=== PATIENT | female | born 1955 | race Caucasian/White ===

== ENCOUNTER 2023-08-03 10:03 | Outpatient (OUT) | payer MEDICARE, OTHER, SELFPAY ==
[2023-08-03 10:36] LABS: Basophils Absolute Auto 0.1 10^3/uL (0.0-0.1); Basophils Percent Auto 0.7 % (0.2-2.0); Eosinophils Absolute Auto 0.1 10^3/uL (0.0-0.7); Eosinophils Percent Auto 1.6 % (0.9-7.0); Hematocrit 41.2 % (36.0-48.0); Hemoglobin 13.2 g/dL (12.0-16.0); Immature Granulocytes Abs Auto 0.02 10^3/uL (0.00-0.03); Immature Granulocytes Pct Auto 0.3 % (0.0-0.5); Lymphocytes Absolute Auto 1.6 10^3/uL (1.2-3.8); Mean Corpuscular Hemoglobin 29.9 pg (26.7-34.0); Mean Corpuscular Volume 93.4 fL (81.0-99.0); Mean Platelet Volume 8.9 fL (9.5-13.5); Monocytes Absolute Auto 0.7 10^3/uL (0.3-0.8); Neutrophils Absolute Auto 4.2 10^3/uL (1.4-6.5); Neutrophils Percent Auto 62.4 % (43.0-75.0); Platelet Count 244 10^3/uL (150-450); Red Blood Count 4.41 10^6/uL (4.20-5.40); Red Cell Distribution Width 13.4 % (11.0-15.0); White Blood Count 6.7 10^3/uL (4.0-11.0)
[2023-08-03 11:10] LABS: Alanine Aminotransferase 17 U/L (14-59); Albumin Globulin Ratio 0.9; Albumin Level 3.4 g/dL (3.4-5.0); Alkaline Phosphatase 66 U/L (46-116); Anion Gap 9.4; Aspartate Amino Transferase 14 U/L (15-37); Bilirubin Total 0.4 mg/dL (0.2-1.0); Calcium 9.7 mg/dL (8.5-10.1); Carbon Dioxide 29.1 mmol/L (21.0-32.0); Chloride 106 mmol/L (98-107); Estimated GFR (African America 57 (>=60); Estimated GFR (Non-African Ame 47 (>=60); Globulin 3.6 g/dL; Glucose 88 mg/dL (74-106); Potassium 3.5 mmol/L (3.5-5.1); Sodium 141 mmol/L (136-145)
== END 2023-08-03 10:04 | disposition home or self-care (01) ==
LOC: LAB 10:09
PROVIDERS: PCP Internal Medicine; Visit Provider Internal Medicine
DX: K21.9 Gastro-esophageal reflux disease without esophagitis (principal); I10 Essential (primary) hypertension
CPT/HCPCS: 36415; 80053; 85025

== ENCOUNTER 2024-08-08 10:29 | Outpatient (OUT) | payer MEDICARE, OTHER, SELFPAY ==
--- OUTSIDE RECORDS SUMMARY | 2024-08-08 10:34 | XMS_ITS | Clinical Summary ---
Author Organization [facility] Address [address] [place] [address] Care Team Providers Care Rad Technologist Name Role Phone Unavailable Primary Care Provider Unavailabl e Social History Tobacco Use Types Packs/Day Years Used Date Smoking Tobacco: Never Assessed Comments Unknown Sex and Gender Information Value Date Recorded Sex Assigned at Not on file Legal Sex Female 6:53 PM EDT Gender Identity Not on file Sexual Orientation Not on file Last Filed Vital Signs Vital Sign Reading Time Taken Comments Blood Pressure 127/81 09/05/2020 12:00 PM EDT Pulse - - Temperature - - Respiratory Rate - - Oxygen Saturation - - Inhaled Oxygen Concentration - - Weight - - Height 25.4 cm (10 ) 08/15/2020 12:00 PM EDT Body Mass Index - - Plan of Treatment Not on file [place] [id number] [id number] MEDICARE
--- OUTSIDE RECORDS SUMMARY | 2024-08-08 10:52 | XMS_ITS | CCD ---
Author Organization [facility] Inform ion Partnership [facility] Care Team Providers Care Curtain Stretcher Name Role Phone Fabio Meza Unavailable DR FABIO MEZA Attending Unavailable ADAM, DR STONE Consulting Unavailable ADAM, DR STONE Primary Care Unavailable DR FABIO MEZA Admitting Unavailable Medications Current Medications Medication Drug Class(es) Dates Sig (Normalized) Sig (Original) hydroCHLOROthiazide 25 mg oral tablet (6 sources) Thiazide Diuretic Start: take 1 tablet by mouth once daily Hydrochlorothiazide 25 mg tablet Active 0 .ROUTE .COMPLEX July 18, 2023 1:43pm TAKE 1 TABLET BY MOUTH EVERY DAY Start: 01-13-2018 End: 07-18-2023 take 1 tablet by mouth once daily Hydrochlorothiazide 12.5 mg Tablet Discontinued 12.5 MG PO Daily January 13, 2018 12:00am July 18, 2023 1:43pm take 1 tablet by lila th once daily hydroCHLOROthiazide 25 MG TAKE 1 TABLET BY MOUTH EVERY DAY Active Metoprolol (6 sources) beta-Adrenergic Rj Start: 07-18-2023 take 1 tablet by mouth once daily Metoprolol Succinate 50 mg tablet extended release 24 hr Active 0 .ROUTE .COMPLEX July 18, 2023 6:06pm TAKE 1 TABLET BY MOUTH EVERY DAY Start: 07-18-2023 take 1 tablet by lila th once daily Metoprolol Succinate Active 0 .ROUTE .COMPLEX July 18, 2023 6:06pm TAKE 1 TABLET BY MOUTH EVERY DAY Start: 01-13-2018 End: 07-18-2023 take 1 tablet by mouth once daily Metoprolol Succinate (Toprol Xl) 25 mg Tablet Extended Release 24 Hr Discontinued 25 MG PO Daily January 13, 2018 12:00am July 18, 2023 6:06pm take 1 tablet by lila th once daily Metoprolol Succinate ER 50 MG TAKE 1 TABLET BY MOUTH EVERY DAY Active omeprazole 40 mg delayed release oral capsule (4 sources) Proton Pump Inhibitor Start: 08-01-2023 Omeprazole 40 mg capsule,delayed release(DR/EC) Active 40 MG PO Daily August 01, 2023 12:00am 30 minutes before morning meal take 1 capsule by mouth once joseline ly Omeprazole 40 MG 1 capsule 30 minutes before morning meal Orally Once a day Active oseltamivir 75 mg oral capsule (1 source) Neuraminidase Inhibitor Start: 05-21-2024 take 1 capsule by mouth every twelve hours Oseltamivir (Tamiflu) 75 mg capsule Active 75 MG PO Every 12 hours 10 May 21, 2024 12:00am paxlovid (300/100) 20 x 150 mg & 10 x 100mg tablet therapy pack (1 source) Start: 03-17-2023 Paxlovid (300/100) 20 x 150 MG & 10 x 100MG as directed Orally bid for 5 days Mar, Active potassium chloride 10 meq extended release oral tablet (4 sources) Start: 08-01-2023 Potassium Chloride (Klor-Con 10) 10 mEq tablet extended release Active 10 MEQ PO Twice daily August 01, 2023 12:00am take 1 tablet by mouth every twe lve hours Klor-Con 10 10 MEQ 1 tablet with food Orally Twice a day Active Problems Active Problems Problem Classification Problem Date Documented Da te Episodic/Chronic Allergic reactions (3 sources) Allergic contact dermatitis due to plants, except food; Translations: [Allergic contact dermatitis due to plants, except food] Onset: 10-22-2016 Resolved: 07-24-2019 Episodic Disorders of lipid metabolism (7 sources) Hypercholesterolemi a; Translations: [Pure hypercholesterolemi a, unspecified] Chronic Disorders of teeth and jaw (2 sources) Disorder of jaw; Translations: [Disease of jaws, unspecified] Episodic Esophageal disorders (5 sources) Gastro-esophageal reflux disease with esophagitis; Translations: [Gastro-esophageal reflux disease with esophagitis, without bleeding] 08-01-2023 Chronic Essential hypertension (8 sources) Essential hypertension; Translations: [Essential (primary) hypertension] Chronic Fluid and electrolyte disorders (2 sources) Hypokalemia; Translations: [Hypokalemia] Episodic Intracranial injury (1 source) Concussion with no loss of consciousness; Translations: [Concussion without loss of consciousness, subsequent encounter] Episodic Open wounds of head; neck; and trunk (1 source) Laceration without foreign body of nose, subsequent encounter; Translations: [Laceration without foreign body of nose, subsequent encounter] Episodic Other aftercare (1 source) Other assisted (current) drug therapy Episodic Other injuries and conditions due to external causes (1 source) History of fall; Translations: [History of falling] Episodic Other nutritional; endocrine; and metabolic disorders (2 sources) Body mass index 30+ - obesity; Translations: [Body mass index (BMI) 34.0-34.9, adult] Chronic Other nutritional; endocrine; and metabolic disorders (5 sources) Obesity; Translations: [Other obesity due to excess calories] 08-03-2023 Chronic Other nutritional; endocrine; and metabolic disorders (1 source) Other obesity due to excess calories Chronic Other nutritional; endocrine; and metabolic disorders (1 source) Body mass index (BMI) 34.0-34.9, adult Chronic Other nutritional; endocrine; and metabolic disorders (1 source) Obesity, unspecified; Translations: [Obesity, unspecified] 08-03-2023 Chronic Other upper respiratory disease (2 sources) Vocal cord paralysis; Translations: [Paralysis of vocal cords and larynx, unilateral] Chronic Residual codes; unclassified (4 sources) Mammogram declined; Translations: [Procedure and treatment not carried out because of patient's decision for unspecified reasons] 08-01-2023 Episodic Residual codes; unclassified (2 sources) Family history of diabetes mellitus; Translations: [Family history of diabetes mellitus] Episodic Residual codes; unclassified (2 sources) Procedure and treatment not carried out because of patient's decision for unspecified reasons; Translations: [Surgical or other procedure not carried out because of patient's decision] Episodic Residual codes; unclassified (1 source) Procedure not done; Translations: [Procedure and treatment not carried out because of patient's decision for unspecified reasons] Episodic Skull and face fractures (1 source) Fractured nasal bones; Translations: [Fracture of nasal bones, subsequent encounter for fracture with routine healing] Episodic Substance-related disorders (1 source) Tobacco user; Translations: [Nicotine dependence, cigarettes, in remission] Chronic Past or Other Problems Problem Classification Problem Date Documented Da te Episodic/Chronic Deficiency and other anemia (1 source) Iron deficiency anemia; Translations: [Unspecified iron deficiency anemia] Onset: 11-02-2018 Resolved: 07-24-2019 Episodic Esophageal disorders (2 sources) Esophageal disorders; Translations: [Gastroesophageal reflux disease with esophagitis without hemorrhage] Malaise and fatigue (1 source) Malaise and fatigue; Translations: [Other malaise and fatigue] Onset: 11-02-2018 Episodic Nonmalignant breast conditions (1 source) Breast lump; Translations: [Unspecified lump in unspecified breast] Onset: 11-14-2014 Resolved: 07-24-2019 Episodic Other screening for suspected conditions (not mental disorders or infectious disease) (2 sources) Imaging of abdomen abnormal; Translations: [Nonspecific (abnormal) findings on radiological and other examination of abdominal area, including retroperitoneum] Onset: 04-25-2015 Resolved: 07-24-2019 Episodic Other upper respiratory infections (1 source) Acute sinusitis; Translations: [Acute sinusitis, unspecified] Onset: 06-28-2013 Resolved: 07-24-2019 Episodic Viral infection (1 source) COVID-19 Results Test Name Value Interpretation Reference Range Facil ity CBC AUTO DIFFon 07-26-2022 BASO # 0.1 103/ul Normal 0.0-0.1 [facility] Comment on above: Performed By: #### C BC #### [facility] [address] [address] [address] Franny Yao Basophils/100 WBC (Bld) 0.8 % Normal 0.2-2.0 [facility] Comment on above: Performed By: #### C BC #### [facility] [address] [address] [address] Franny Yao EO # 0.1 103/ul Normal 0.0-0.7 [facility] Comment on above: Performed By: #### C BC #### [facility] [address] [address] [address] Franny Yao Eosinophils/100 WBC (Bld) 2.1 % Normal 0.9-7.0 [facility] Comment on above: Performed By: #### C BC #### [facility] [address] [address] [address] Franny Yao Erythrocyte distribution width (RBC) [Ratio] 13.5 % Normal 11.0-15.0 [facility] Comment on above: Performed By: #### C BC #### [facility] [address] [place] [address] Dr. Franny Yao Hematocrit (Bld) [Volume fraction] 43.9 % Normal 36.0-48.0 [facility] Comment on above: Performed By: #### C BC #### [facility] [address] [place] [address] Dr. Franny Yao Hemoglobin (Bld) [Mass/Vol] 14.1 g/dL Normal 12.0-16.0 [facility] Comment on above: Performed By: #### C BC #### [facility] [address] [place] [address] Dr. Franny Yao IG # 0.03 10e3/ul Normal 0.00-0.03 [facility] Comment on above: Performed By: #### C BC #### [facility] [address] [place] [address] Dr. Franny Yao IG % 0.5 % Normal 0.0-0.5 [facility] Comment on above: Performed By: #### C BC #### [facility] [address] [place] [address] Dr. Franny Yao LYMPH # 1.7 103/ul Normal 1.2-3.8 [facility] Comment on above: Performed By: #### C BC #### [facility] [address] [place] [address] Dr. Franny Yao Lymphocytes/100 WBC (Bld) 27.2 % Normal 20.5-60.0 [facility] Comment on above: Performed By: #### C BC #### [facility] [address] [place] [address] Dr. Franny Yao MANUAL DIFF REQ NO Normal [facility] Comment on above: Performed By: #### C BC #### [facility] [address] [place] [address] Dr. Franny Yao MCH (RBC) [Entitic mass] 29.9 pg Normal 26.7-34.0 [facility] Comment on above: Performed By: #### C BC #### [facility] [address] [address] [address] Franny Yao MCHC (RBC) [Mass/Vol] 32.1 g/dL Normal 29.9-35.2 [facility] Comment on above: Performed By: #### C BC #### [facility] [address] [address] [address] Franny Yao MCV (RBC) [Entitic vol] 93.0 fL Normal 81.0-99.0 [facility] Comment on above: Performed By: #### C BC #### [facility] [address] [address] [address] Franny Yao MONO # 0.7 103/ul Normal 0.3-0.8 [facility] Comment on above: Performed By: #### C BC #### [facility] [address] [place] [address] Dr. Franny Yao Monocytes/100 WBC (Bld) 10.7 % Normal 1.7-12.0 [facility] Comment on above: Performed By: #### C BC #### [facility] [address] [place] [address] Dr. Franny Yao NEUT # 3.6 103/ul Normal 1.4-6.5 [facility] Comment on above: Performed By: #### C BC #### [facility] [address] [place] [address] Dr. Franny Yao Neutrophils/100 WBC (Bld) 58.7 % Normal 43.0-75.0 [facility] Comment on above: Performed By: #### C BC #### [facility] [address] [address] [address] Franny Yao Platelet mean volume (Bld) [Entitic vol] 8.6 fL Critically low 9.5-13.5 [facility] Comment on above: Performed By: #### C BC #### [facility] [address] [address] [address] Franny Yao PLT 261 103/ul Normal 150-450 [facility] Comment on above: Performed By: #### C BC #### [facility] [address] [address] [address] Franny Yao RBC 4.72 106/ul Normal 4.20-5.40 [facility] Comment on above: Performed By: #### C BC #### [facility] [address] [place] [address] Dr. Franny Yao WBC 6.1 103/ul Normal 4.0-11.0 [facility] Comment on above: Performed By: #### C BC #### [facility] [address] [address] [address] Franny Yao PROF CHEM 8 (BAS METB)on Anion gap [Moles/Vol] 13.5 mmol/L Normal [facility] Comment on above: Performed By: #### B MP #### [facility] [address] [place] [address] Dr. Franny Yao Calcium [Mass/Vol] 9.7 mg/dL Normal 8.5-10.1 [facility] Comment on above: Performed By: #### B MP #### [facility] [address] [place] [address] Dr. Franny Yao Chloride [Moles/Vol] 107 mmol/L Normal 98-107 [facility] Comment on above: Performed By: #### B MP #### [facility] [address] [place] [address] Dr. Franny Yao CO2 [Moles/Vol] 29.3 mmol/L Normal 21.0-32.0 [facility] Comment on above: Performed By: #### B MP #### [facility] [address] [place] [address] Dr. Franny Yao Creatinine [Mass/Vol] 1.11 mg/dL Critically high 0.55-1.02 [facility] Comment on above: Performed By: #### B MP #### [facility] [address] [place] [address] Dr. Franny Yao EGFR-AF ISRAELI 59 mL/min/1.73m2 Critically low >=60 [facility] Comment on above: Performed By: #### B MP #### [facility] [address] [address] [address] Franny Yao EGFR-NON AF ISRAELI 49 mL/min/1.73m2 Critically low >=60 [facility] Comment on above: Performed By: #### B MP #### [facility] [address] [address] [address] Franny Yao Glucose [Mass/Vol] 104 mg/dL Normal 74-106 [facility] Comment on above: Performed By: #### B MP #### [facility] [address] [address] [address] Franny Yao Potassium [Moles/Vol] 3.8 mmol/L Normal 3.5-5.1 [facility] Comment on above: Performed By: #### B MP #### [facility] [address] [address] [address] Franny Yao Sodium [Moles/Vol] 146 mmol/L Critically high 136-145 [facility] Comment on above: Performed By: #### B MP #### [facility] [address] [address] [address] Franny Yao Urea nitrogen [Mass/Vol] 18.0 mg/dL Normal 7.0-18.0 [facility] Comment on above: Performed By: #### B MP #### [facility] [address] [address] [address] Franny Yao Urea nitrogen/Creatinine [Mass ratio] 16.2 mg/mg Normal [facility] Comment on above: Performed By: #### B MP #### [facility] [address] [address] [address] Franny Yao Vital Signs Date Time Vital Sign Value Performing Clinician Facility 05-21-2024 13:49-0400 Body height 172.72 cm [facility] 05-21-2024 13:49-0400 Body mass index (BMI) [Ratio] 34 kg/m2 [facility] 05-21-2024 13:49-0400 Body weight 101.32 kg [facility] 05-21-2024 13:49-0400 Diastolic blood pressure 71 mm[Hg] [facility] 05-21-2024 13:49-0400 Heart rate 93 /min [facility] 05-21-2024 13:49-0400 Respiratory rate 12 /min [facility] 05-21-2024 13:49-0400 Systolic blood pressure 110 mm[Hg] [facility] 08-03-2023 09:35-0400 Body height 172.72 cm [facility] 08-03-2023 09:35-0400 Body mass index (BMI) [Ratio] 34.4 kg/m2 [facility] 08-03-2023 09:35-0400 Body weight 102.96 kg [facility] 08-03-2023 09:35-0400 Diastolic blood pressure 82 mm[Hg] [facility] 08-03-2023 09:35-0400 Heart rate 60 /min [facility] 08-03-2023 09:35-0400 Respiratory rate 12 /min [facility] 08-03-2023 09:35-0400 Systolic blood pressure 122 mm[Hg] [facility] 07-23-2022 10:30-0400 Body height 175.26 cm Fabio Ball Other [facility] [employer] Other 07-23-2022 10:30-0400 Body mass index (BMI) [Ratio] 34.46 kg/m2 Fabio Ball Other [facility] [employer] Other 07-23-2022 10:30-0400 Body weight 105.87 kg Fabio Ball Other [employer] [facility] [employer] Other 07-23-2022 10:30-0400 Diastolic blood pressure 76 mm[Hg] Fabio Ball Other [facility] [employer] Other 07-23-2022 10:30-0400 Respiratory rate 12 /min Fabio Ball Other [facility] [employer] Other 07-23-2022 10:30-0400 Systolic blood pressure 109 mm[Hg] Fabio Ball Other [employer] Other Encounters Encounter Date Encounter Type Care Provider Facility Start: 05-21-2024 End: 05-21-2024 ambulatory [facility] Work Phone: Start: 05-21-2024 End: 05-21-2024 Patient encounter procedure [facility] Work Phone: Start: 08-03-2023 End: 08-03-2023 ambulatory [facility] Work Phone: Start: 08-03-2023 End: 08-03-2023 Patient encounter procedure [facility] Work Phone: Start: 03-17-2023 End: 03-17-2023 ambulatory Fabio Meza Other [employer] Other Start: 03-17-2023 Office outpatient vi sit 15 minutes Fabio Meza [facility] Start: 07-26-2022 End: 07-27-[address] FABIO MEZA Facility:[facility] Start: 07-23-2022 End: 07-23-2022 ambulatory Fabio Meza Other [employer] Other Start: 07-23-2022 Patient encounter procedure Fabio Meza [facility] Start: 07-16-2021 Adult health examination Fabio Meza Other [employer] Other Procedures Date Procedure Procedure Detail Performing Clinician Start: 11-02-2018 End: 07-24-2019 Screening for malignant neoplasm of colon Fabio Adam Other Start: 11-09-2017 End: 07-24-2019 Diabetes mellitus screening Fabio Meza Other Start: 11-09-2017 End: 07-24-2019 General examination of patient Fabio Meza Other Depression screening Malathi Meza Other Plan of Treatment Date Care Activity Detail Author Comprehensive metabo lic 2000 panel - Serum or Plasma [facility] enter [facility] Immunizations Immunization Date Immunization Notes Care Provider Selena victor 01-18-2022 influenza virus vaccine, split virus (incl. purified surface antigen) Fabio Meza Other [facility] [employer] Other 01-18-2022 influenza virus vaccine, unspecified formulation [facility] 01-18-2022 influenza, high dose seasonal, preservative-free Fabio Meza Other [facility] [employer] Other 12-17-2020 COVID-19 Vaccine Pfi zer - Documentation Purposes Only Fabio Meza Other [facility] 06-17-2020 COVID-19 Vaccine Pfi zer - Documentation Purposes Only Fabio Meza Other [facility] 05-26-2020 COVID-19 Vaccine Pfi zer - Documentation Purposes Only Fabio Adam Other [facility] 01-31-2020 pneumococcal conjuga te vaccine, 13 valent Fabio Meza Other [facility] 12-10-2019 influenza virus vaccine, split virus (incl. purified surface antigen) Fabio Meza Other [facility] [employer] Other 12-10-2019 influenza virus vaccine, unspecified formulation [facility] 07-16-2019 tetanus and diphther ia toxoids, adsorbed, preservative free, for adult use (5 Lf of tetanus toxoid and 2 Lf of diphtheria toxoid) [facility] 07-16-2019 tetanus toxoid, redu emilia diphtheria toxoid, and acellular pertussis vaccine, adsorbed Fabio Meza Other [facility] [employer] Other 01-01-2018 zoster vaccine recombinant Fabio Meza Other [facility] 10-07-2017 zoster vaccine recombinant Fabio Meza Other [facility] 12-22-2016 tetanus and diphther ia toxoids, adsorbed, preservative free, for adult use (5 Lf of tetanus toxoid and 2 Lf of diphtheria toxoid) Fabio Meza Other [facility] 12-22-2016 zoster vaccine, live Benjami marguerite Meza Other [facility] Payers Date Payer Category Payer Medicare [id number] 1960 Unknown [id number] 1955 Unknown [id number] Self-pay Self Pay [id number] Unknown Aaliyah BC/JUSTO [id number] Unknown [id number] Worker's Compensation [employer] [facility] [id number] Social History Date Type Detail Facility Sex Assigned At [employer] Other Start: 01-13-2018 Tobacco smoking stat RUSTIS Ex-smoker (finding) [facility] Start: 1955 Sex Assigned At Female F [facility] Start: 05-21-2024 Sex Female (finding) [facility] Evaluation note 03-17-2023 Note Date & Type Note Facility 03-17-2023 Evaluation note Encounter Date Diagnosis Assessment Notes Mar, COVID-19 (ICD-10 - U07.1) Instructed to use Robitussin or Mucinex for cough, saline or Flonase NS for congestion, Tylenol for pain and fever. Self isolate at home. - Cannot work - avoid contact with others - avoid pets - wipe counters, door knobs if touched - if can't avoid leaving home, must wear mask to protect others - need to stay isolated for 10 days from onset of symptoms - to discontinue isolation must be 5 days AND must be without fever for 24 hours AND symptoms must be improving. Always wear a mask in public places for complete 10 days Mar, Primary hypertension (ICD-10 - I10) Increase risk for more serious, prolonged illness [employer] Other Evaluation note 07-23-2022 Note Date & Type Note Facility 07-23-2022 Evaluation note Encounter Date Diagnosis Assessment Notes July, Medicare annual wellness visit, subsequent (ICD-10 - Z00.00) Personalized health advice was given to the beneficiary including a written plan for screenings discussed and provided. Advanced care planning reviewed and/or information given as requested. Additional counseling was provided here today in regards to, [ ]. The above visit was performed by [ ], under direct supervision of [ ]. Document reviewed and amended by provider signed below. July, Essential (primary) hypertension (ICD-10 - I10) This patient is instructed to consume a healthy, low-fat, low-salt diet. They are also encouraged to continue exercise to achieve/maintain a normal BMI. July, Hypercholesterolemia (ICD-10 - E78.00) Instructed on diet and exercise with continued statin therapy.Discusse d the beneficial effects of lowering cholesterol in reducing the risk for cerebrovascular and cardiovascular disease. July, Gastroesophageal reflux disease with esophagitis without hemorrhage (ICD-10 - K21.00) Diet instructions: Smaller portions, avoid eating and laying flat, avoid eating or drinking prior to bedtime. Weight loss. July, Other obesity due to excess calories (ICD-10 - E66.09) This patient has been instructed on a low-fat, high-fiber diet. They are instructed to reduce calories, portion sizes and snacks. It is recommended that they exercise for 30 minutes, 3-5 times weekly. July, Body mass index [BMI] 34.0-34.9, adult (ICD-10 - Z68.34) July, High risk medication use (ICD-10 - Z79.899) July, Mammogram declined (ICD-10 - Z53.20) [employer] Other Evaluation note Note Date & Type Note Facility Evaluation note Diagnosis Onset Date GERD (gastroesophageal reflux disease) acute Hypercholesterolemia acute Hypertension acute Obesity acute Screening mammography declined acute Medicare annual wellness visit, subsequent noneactive [facility] Work Phone: Evaluation note Note Date & Type Note Facility Evaluation note No assessment information availa ble [facility] Work Phone: History general Narrative - Reported Note Date & Type Note Facility History general Narrative - Reported Type Medical History Allergic contact mekhi matitis due to plants, except food Medical History Mammogram declined Medical History Family history of diabetes melli tus Medical History Hypercholesterolemia Medical History Gastroesophageal ref lux disease with esophagitis without hemorrhage Medical History Disease of jaws, unspecified Medical History Paralysis of vocal c ords and larynx, unilateral Medical History Essential (primary) hypertension Medical History Hypokalemia Surgical History COLONOSCOPY Surgical History CLAUDIA/BSO Surgical History APPY BREAST BIOPSY Hospitalization History SEE SURGICAL HX [facility] Other Summary Purpose Family History Relationship Condition Age at Onset Recorded Date/T lidia brother Hypertension Unknown Diabetes mellitus Unknown Family history of kidney disease Unknown Not Specified Malignant neoplasm Unknown sister Malignant neoplasm of breast Unknown Malignant neoplasm Unknown Relationship Condition Age at Onset Recorded Date/T lidia brother Hypertension Unknown Diabetes mellitus Unknown Family history of kidney disease Unknown mother Malignant neoplasm Unknown sister Malignant neoplasm of breast Unknown Malignant neoplasm Unknown Advance Directives Advance Directive Response Recorded Date/ Time Advance Directives No January 13, 2018 3:54pm Chief Complaint and Reason for Visit Chief Complaint Wellness Reason for Visit GERD (gastroesophage al reflux disease) Hypercholesterolemia Hypertension Obesity Screening mammography declined Medicare annual wellness visit, subsequent Chief Complaint Admit Date cough, chest congestion May 21, 2024 1:41pm Additional Source Comments REASON FOR VISIT (unrecogniz ed section and content) [id number] COVID + INFORMATION SOURCE (unrecogn ized section and content) DATE CREATED AUTHOR 07/27/2022 [facility] Care Teams (unrecognized sec tion and content) Team Status: Active Member Role Status Dates Fabio Meza DO Primary Care Provider Active Team Status: Inactive Member Role Status Dates Fabio Meza DO Primary Care Provide r, Attending Provider Active Start: August 03, 2023 End: August 03, 2023 Team Status: Inactive Member Role Status Dates Fabio Meza DO Primary Care Provide r, Attending Provider Active Start: May 21, 2024 End: May 21, 2024 Goals (unrecognized section and content) Goals may be documented in a n alternate section FOR RECORDS PERTAINING TO PATIENTS WHO ARE OR HAVE BEEN ENROLLED IN A CHEMICAL DEPENDENCY/SUBSTANCEABUSE PROGRAM, SOME INFORMATION MAY BE OMITTED. This clinical summary was aggregated from multiple sources. Caution should be exercised in using it in the provision of clinical care. This summary normalizes information from multiple sources, and as a consequence, information in this document may materially change the coding, format and clinical context of patient data. In addition, data may be omitted in some cases. CLINICAL DECISIONS SHOULD BE BASED ON THE PRIMARY CLINICAL RECORDS. [facility] [employer] [facility]. provides no warranty or guarantee of the accuracy or completeness of information in this document.
[2024-08-08 11:08] LABS: Basophils Percent Auto 0.6 % (0.2-2.0); Eosinophils Absolute Auto 0.1 10^3/uL (0.0-0.7); Eosinophils Percent Auto 1.9 % (0.9-7.0); Hematocrit 41.3 % (36.0-48.0); Hemoglobin 13.8 g/dL (12.0-16.0); Immature Granulocytes Abs Auto 0.02 10^3/uL (0.00-0.03); Immature Granulocytes Pct Auto 0.3 % (0.0-0.5); Lymphocytes Absolute Auto 1.7 10^3/uL (1.2-3.8); Lymphocytes Percent Auto 24.7 % (20.5-60.0); Mean Corpuscular HGB Conc 33.4 g/dL (29.9-35.2); Mean Corpuscular Volume 92.8 fL (81.0-99.0); Mean Platelet Volume 8.7 fL (9.5-13.5); Monocytes Absolute Auto 0.7 10^3/uL (0.3-0.8); Monocytes Percent Auto 10.3 % (1.7-12.0); Neutrophils Absolute Auto 4.1 10^3/uL (1.4-6.5); Neutrophils Percent Auto 62.2 % (43.0-75.0); Platelet Count 254 10^3/uL (150-450); Red Blood Count 4.45 10^6/uL (4.20-5.40); Red Cell Distribution Width 13.8 % (11.0-15.0); White Blood Count 6.7 10^3/uL (4.0-11.0)
[2024-08-08 11:27] LABS: Alanine Aminotransferase 18 U/L (14-59); Albumin Globulin Ratio 0.9; Albumin Level 3.3 g/dL (3.4-5.0); Alkaline Phosphatase 81 U/L (46-116); Anion Gap 13.3; Aspartate Amino Transferase 14 U/L (15-37); BUN Creatinine Ratio 16.5; Bilirubin Total 0.3 mg/dL (0.2-1.0); Calcium 9.6 mg/dL (8.5-10.1); Carbon Dioxide 30.2 mmol/L (21.0-32.0); Chloride 107 mmol/L (98-107); Chol HDL Ratio 3.1; Cholesterol 192 mg/dL (<=200); Estimated GFR (African America >60 (>=60 mL/min/1.73m^2); Estimated GFR (Non-African Ame 50 (>=60 mL/min/1.73m^2); Globulin 3.7 g/dL; Glucose 118 mg/dL (74-106); HDL Cholesterol 61 mg/dL (40-60); Potassium 4.5 mmol/L (3.5-5.1); Sodium 146 mmol/L (136-145); Triglycerides 192 mg/dL (<=150); VLDL CHOLESTEROL 38.4 mg/dL
== END 2024-08-08 10:30 | disposition home or self-care (01) ==
LOC: LAB 10:30
PROVIDERS: PCP Internal Medicine; Visit Provider Internal Medicine
DX: E78.00 Pure hypercholesterolemia, unspecified (principal); I10 Essential (primary) hypertension; Z79.899 Other long term (current) drug therapy
CPT/HCPCS: 36415; 80053; 80061; 85025